=== PATIENT | female | born 1980 | race Caucasian/White ===

== ENCOUNTER 2017-09-13 05:58 | Day surgery (SDC) | payer BC ==
[2017-09-07 13:49] VITALS: BMI 31.7
[2017-09-13] MEDS ORDERED: CEFAZOLIN/Water 2 GM/20 ML SYRINGE ONE (06:16)
[2017-09-13] MEDS ORDERED: Ondansetron HCl/PF 4 MG/2 ML Vial ONE ×2 (06:39→15:29)
[2017-09-13] MEDS ORDERED: Famotidine/PF 20 mg/2ml Vial ONE (06:44)
[2017-09-13] MEDS ORDERED: Bupivacaine 0.25% HCL 30 ML VIAL ONE (06:55)
[2017-09-13] MEDS ORDERED: Lidocaine 1% w/Epinephrine 1:200K 30 ML VIAL ONE (06:55)
[2017-09-13] MEDS ORDERED: Fentanyl 100 MCG/2 ML VIAL ONE ×2 (07:34→08:37)
[2017-09-13] MEDS ORDERED: Bupivacaine 0.5% 10 ML VIAL ONE (07:43)
[2017-09-13] MEDS ORDERED: Lidocaine 1% (PF) 30 ML VIAL ONE (07:43)
--- NOTE | 2017-09-13 15:05 | OP ---
DATE OF PROCEDURE: 09/13/2017 PREOPERATIVE DIAGNOSIS: Right radial tear of medial meniscus. POSTOPERATIVE DIAGNOSES: 1. Right radial tear of medial meniscus. 2. Grade I-II changes noted in medial femoral condyle. PROCEDURE PERFORMED: Right arthroscopic medial meniscectomy. STAFF: Klaus Banerjee M.D. CULINARY INTERNSHIP: None. ANESTHESIA: Av Kumar M.D. Patient received 25 mL of Marcaine 0.25% plain and then 25 mL lidoc catarino pre-scope and post-scope subcu and an intra-articular 1% lidocaine with epinephrine. ESTIMATED BLOOD LOSS: Less than 20 mL. TOURNIQUET TIME: 11 minutes. ANTIBIOTICS: Ancef 2 grams. COMPLICATIONS: None. HISTORY OF PRESENT ILLNESS: Ms. Trejo is a pleasant 37-year-old female who presented to me with righ t knee pain for about 4 months. 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 Patient's pain was localized medial to her right knee. I discussed with patient the r isks and benefits of an arthroscopic meniscectomy to include pain, scar, bleeding, infection, damage to vital structures, decreased range of motion or strength, failure of procedure, continued pain desp ite surgical intervention, arthritis long-term and loss of life or limb. The patient understood the risks and benefits of procedure and elected to proceed. DESCRIPTION OF PROCEDURE: Time out was performed designating the patient's right lower extremity as the operative site based on sight, consents, markings. After completion of timeout, the patient's [facility] lower extremity was prepped and draped in a sterile fashion. The patient had 30 mL of Marcaine 0 .25%, plain intraarticularly. We then began our scope. We debrided the fat pad, looked at the ACL w hich was intact, PCL was intact. Patellofemoral cartilage looked good. There was nothing in the med ial and lateral gutters. The patient's lateral compartment was clean, no lateral meniscus tear noted . Medial compartment, medial femoral condyle had some grade I and II changes little small fissuring with no full thickness cartilage defects. She did have a radial tear, which was noted and right befo re the horn of the medial meniscus. We used biters to nibble the tear and shaved to a stable remnant . I took pictures of the medial femoral condyle as well as the meniscus after completion of the debr idement. I then washed, let the tourniquet down. I injected lidocaine with epinephrine intraarticul gabi within the subcutaneous to help with pain control, placed my 3-0 nylon. The patient will be weightbearing as tolerated. Follow up with me in 2 weeks. Discharged home with pain medications.
[2017-09-13] MEDS ORDERED: Ketorolac Tromethamine 30 MG/ML VIAL ONE (15:29)
[2017-09-13] MEDS ORDERED: Dexamethasone 20 MG/5 ML VIAL ONE (15:29)
[2017-09-13] MEDS ORDERED: Lidocaine 1% PF 5 ML VIAL ONE (15:29)
[2017-09-13] MEDS ORDERED: PROPOFOL 200 MG/20 ML VIAL ONE (15:29)
== END 2017-09-13 10:00 | disposition home or self-care (01) ==
LOC: SDC 05:58
PROVIDERS: ATTEND Orthopaedic Surgery
PROC: 0SBC4ZZ Excision of Right Knee Joint, Percutaneous Endoscopic Approach (ICD-10-PCS; principal; 2017-09-13)
DX: S83.241A Other tear of medial meniscus, current injury, right knee, initial encounter (principal); Z90.49 Acquired absence of other specified parts of digestive tract; Z98.891 History of uterine scar from previous surgery; Z90.710 Acquired absence of both cervix and uterus; Z98.890 Other specified postprocedural states
CPT/HCPCS: 96374; G8978-GP-CI; G8979-GP-CI; G8980-GP-CI; J1100; J1885; J2001; J2405; J2704; J3010; J3490; S0020; S0028

== ENCOUNTER 2019-08-20 09:04 | Outpatient (CLI) | payer BC ==
--- NOTE | 2019-08-20 11:15 | MRI ---
MRI LEFT KNEE WITHOUT IV CONTRAST: HISTORY: Acute left knee pain, M25.562. TECHNIQUE: Multiplanar, multisequence MRI examination of the left knee is performed. FINDINGS: No significant abnormal joint effusion. No significant focal cartilage loss. There is a small focus o f linear increased signal involving the undersurface of the body of the medial meniscus, probably rep resenting a small subsurface tear. Minimal intrasubstance degenerative signal within the medial menis cus. The lateral meniscus appears unremarkable. Collateral ligament complexes, quadriceps and patella r tendons, and anterior and posterior cruciate ligaments appear intact. No acute osteochondral defect or significant abnormal marrow signal. IMPRESSION: 1. Subtle linear area of increased signal involving the undersurface of the body of the medial menisc us, probably representing a small, subsurface tear. 1. No evidence for other significant acute internal derangement. POS: OFF
== END 2019-08-20 09:05 | disposition home or self-care (01) ==
LOC: SCSMRI 09:04
PROVIDERS: ATTEND Orthopaedic Surgery
DX: M25.562 Pain in left knee (principal)

== ENCOUNTER 2019-09-01 06:13 | Outpatient (CLI) | payer BC ==
[2019-09-01 12:26] LABS: #Basophils 0.1 thou/uL (0.0-0.2); #Eosinphils 0.3 thou/uL (0.0-0.7); #Lymphocytes 3.4 thou/uL (1.20-3.40); #Monocytes 0.6 thou/uL (0.11-0.59); #Neutrophils 4.5 thou/uL (1.40-6.50); %Basophils 1.2 % (0.0-1.0); %Eosinophils 2.8 % (0.0-10.0); %Lymphocytes 38.4 % (21.0-51.0); %Monocytes 6.5 % (0.0-10.0); Hemoglobin 13.3 g/dL (12.0-16.0); Mean Corpuscular HGB CONC 33.6 g/dL (32.0-36.0); Mean Corpuscular Hemoglobin 29.7 pg (27.0-31.0); Mean Corpuscular Volume 88.5 fL (78.0-98.0); Mean Platelet Volume 7.5 fL (7.4-10.4); Platelet Count 275 thou/uL (130-400); RBC Distribution Width 11.4 % (11.5-14.5); Red Blood Cell (RBC) Count 4.48 mill/uL (4.20-5.40); White Blood Cell (WBC) Count 8.9 thou/uL (4.8-10.8)
[2019-09-01 12:50] LABS: Anion Gap 12 mmol/L (10-20); BUN (Urea Nitrogen) 9 mg/dL (7.0-18.7); Calc. Creatinine Clearance 0 mL/min (70-130); Calcium 9.4 mg/dL (7.8-10.44); Carbon Dioxide 26 mmol/L (22-29); Chloride 103 mmol/L (98-107); Estimated GFR-MDRD Greater than 90; Glucose 86 mg/dL (70-105); Potassium 3.7 mmol/L (3.5-5.1); Sodium 137 mmol/L (136-145)
== END 2019-09-01 06:14 | disposition home or self-care (01) ==
LOC: LABBT 06:13
PROVIDERS: ATTEND Surgery
DX: Z01.812 Encounter for preprocedural laboratory examination (principal); K43.2 Incisional hernia without obstruction or gangrene
CPT/HCPCS: 80048; 85025

== ENCOUNTER 2019-09-05 06:04 | Day surgery (SDC) | payer BC ==
[2019-09-01 11:17] VITALS: BMI 33.5
[2019-09-05] MEDS ORDERED: Scopolamine 1.5 mg/72 hour Patch ONE (06:44)
[2019-09-05] MEDS ORDERED: Fentanyl 100 MCG/2 ML VIAL ONE ×2 (06:44→10:26)
[2019-09-05] MEDS ORDERED: Lidocaine 1% w/Epinephrine 1:100K 20 ML VIAL ONE (07:04)
[2019-09-05] MEDS ORDERED: Bupivacaine 0.25% HCL 30 ML VIAL ONE (07:04)
[2019-09-05] MEDS ORDERED: PHENYLEPHRINE-NS 100 MCG/ML 10 ML SYRINGE ONE (11:08)
[2019-09-05] MEDS ORDERED: Ketorolac Tromethamine 30 MG/ML VIAL ONE (11:08)
[2019-09-05] MEDS ORDERED: PROPOFOL 200 MG/20 ML VIAL ONE (11:08)
[2019-09-05] MEDS ORDERED: Lidocaine 1% PF 5 ML VIAL ONE (11:08)
[2019-09-05] MEDS ORDERED: Ondansetron PF 4 MG/2 ML Vial ONE (11:08)
[2019-09-05] MEDS ORDERED: Rocuronium Bromide 10 MG/ML (10ML VIAL) ONE (11:08)
[2019-09-05] MEDS ORDERED: Glycopyrrolate 0.2 MG/ML 5 ML SYRINGE ONE (11:08)
[2019-09-05] MEDS ORDERED: Dexamethasone 20 MG/5 ML VIAL ONE (11:08)
[2019-09-05] MEDS ORDERED: HYDROcodone/Acetaminophen 5/325 mg Tablet ONE (11:10)
[2019-09-05] MEDS ORDERED: Morphine 2 MG/ML SYRINGE ONE (11:41)
--- NOTE | 2019-09-08 09:42 | OP ---
DATE OF PROCEDURE: 09/05/2019 PREOPERATIVE DIAGNOSIS: Incisional hernia. POSTOPERATIVE DIAGNOSIS: Incisional hernia. PROCEDURE PERFORMED: Da Frantz laparoscopic incisional hernia repair with mesh, [address] ANESTHESIA: General. ESTIMATED BLOOD LOSS: Minimal. COMPLICATIONS: None. SPECIMEN: None. FINDINGS: Incisional hernia. DESCRIPTION OF PROCEDURE: The patient was taken to the operating room and laid supine on the operating room table. After general anesthetic was obtained, a Watkins was placed. The abdomen was prepped and draped in a sterile fashion. Left subcostal 5 mm Optiview trocar was placed without injury, and high-flow pneumoperitoneum was obtained. Left and right subcostal 8 mm robot trocars were placed, and the 5 mm port was switched out to an 11 mm [employer] port. All ports were docked to the robot. Peritoneum was taken down in the area of the umbilicus, where the incisional hernia was, exposing the incisional hernia. The preperitoneal fat was reduced out of the hernia. 0 V-Loc suture was used to close the defect primarily. 8 cm Ventralex mesh was brought into the sterile field and placed in the abdominal cavity. The exposed mesh part was placed up against the posterior fascia. The protected undersurface was left down against the bowel. This was sewn to the posterior fascia using running 2-0 V- Loc. All port sites were infiltrated using local anesthetic. All ports were removed under camera visualization. Pneumoperitoneum was let down. 4-0 Monocryl and Dermabond were used to close all the skin incisions. The patient was sent to Recovery in stable condition. All instrument counts, needle counts, and lap counts were correct. Job ID: [id number]
== END 2019-09-05 12:56 | disposition home or self-care (01) ==
LOC: SDC 06:04
PROVIDERS: ATTEND Surgery
PROC: 0WUF4JZ Supplement Abdominal Wall with Synthetic Substitute, Percutaneous Endoscopic Approach (ICD-10-PCS; principal; 2019-09-05)
DX: K43.2 Incisional hernia without obstruction or gangrene (principal)
CPT/HCPCS: C1781; J0690; J1100; J1885; J2001; J2270; J2405; J2704; J3010; S0020

== ENCOUNTER 2019-09-25 07:28 | Day surgery (SDC) | payer BC ==
[2019-09-24 14:03] VITALS: BMI 32.5
[2019-09-25 08:27] LABS: #Basophils 0.1 thou/uL (0.0-0.2); #Eosinphils 0.4 thou/uL (0.0-0.7); #Lymphocytes 2.6 thou/uL (1.20-3.40); #Monocytes 0.4 thou/uL (0.11-0.59); %Basophils 0.8 % (0.0-1.0); %Eosinophils 4.4 % (0.0-10.0); %Lymphocytes 31.2 % (21.0-51.0); %Monocytes 4.9 % (0.0-10.0); %Neutrophils 58.8 % (42.0-75.0); Hemoglobin 14.1 g/dL (12.0-16.0); Mean Corpuscular HGB CONC 34.4 g/dL (32.0-36.0); Mean Corpuscular Hemoglobin 30.9 pg (27.0-31.0); Mean Corpuscular Volume 89.8 fL (78.0-98.0); Mean Platelet Volume 7.8 fL (7.4-10.4); Platelet Count 276 thou/uL (130-400); RBC Distribution Width 11.2 % (11.5-14.5); Red Blood Cell (RBC) Count 4.57 mill/uL (4.20-5.40); White Blood Cell (WBC) Count 8.4 thou/uL (4.8-10.8)
[2019-09-25] MEDS ORDERED: Bupivacaine 0.25% HCL 30 ML VIAL ONE (09:14)
[2019-09-25] MEDS ORDERED: Lidocaine 1% w/Epinephrine 1:100K 20 ML VIAL ONE (09:14)
[2019-09-25] MEDS ORDERED: HYDROmorphone 0.5 MG/0.5 ML SYRINGE ONE (09:17)
[2019-09-25] MEDS ORDERED: Midazolam HCl 2 mg/2 ml Vial ONE (09:17)
[2019-09-25] MEDS ORDERED: Meperidine HCl/PF 25 MG/ML VIAL ONE (10:43)
[2019-09-25] MEDS ORDERED: PROPOFOL 200 MG/20 ML VIAL ONE (11:28)
[2019-09-25] MEDS ORDERED: Dexamethasone 20 MG/5 ML VIAL ONE (11:28)
[2019-09-25] MEDS ORDERED: Lidocaine 1% PF 5 ML VIAL ONE (11:28)
[2019-09-25] MEDS ORDERED: Ondansetron PF 4 MG/2 ML Vial ONE (11:28)
[2019-09-25] MEDS ORDERED: Ketorolac Tromethamine 30 MG/ML VIAL ONE (11:28)
[2019-09-25] MEDS ORDERED: HYDROcodone/Acetaminophen 5/325 mg Tablet ONE (12:15)
--- NOTE | 2019-09-25 12:39 | OP ---
DATE OF PROCEDURE: 09/25/2019 PREOPERATIVE DIAGNOSIS: Left medial meniscus tear. POSTOPERATIVE DIAGNOSIS: Left medial meniscus tear. PROCEDURE PERFORMED: Left medial partial meniscectomy. TERRAZZO TILE MAKER: None. ANESTHESIOLOGIST: Dr. Price. ANESTHESIA: The patient received LMA, 25 mL of 1% lidocaine with epi and 25 mL of Marcaine 0.25% plain postprocedure. ANTIBIOTICS: Ancef 2 g. TOURNIQUET TIME: 16 minutes at 200 mmHg. ESTIMATED BLOOD LOSS: 20 mL. COMPLICATIONS: None. HISTORY OF PRESENT ILLNESS: Ms. Trejo is a 39-year-old female with previous right meniscectomy, left knee was bothering her. MRI showed a frayed edge tear of the meniscus. I discussed the risks and benefits of the left medial meniscectomy to include pain, scar, bleeding, infection, damage to vital structures, decreased range of motion and strength, arthritis, continued pain despite surgical intervention, loss of life or limb. The patient understood the risks and benefits and elected to proceed. DESCRIPTION OF PROCEDURE: Time-out was performed designating the patient's left lower extremity as the operative site based on site, consents, and marking. After time-out, the patient's left lower extremity was prepped and draped in sterile fashion. I injected 25 mL of lidocaine 1% with epi into the joint. I then took the tourniquet up and it was left up for a total of 16 minutes. I made an anterolateral incision, visualized the spinal needle above the meniscus, placed in the medial meniscus position, that was visualized, placed our left medial portal, excised the fat pad, probed and saw the ACL and PCL. There were no cartilage lesions in the trochlea or the femur, lateral meniscusthere were no tears, nothing to be probed in the joint. Medially, there was a small tear along the white-white zone that had a small rent like a small radial component, which we cleaned up with biters and mary , and looked for any other defects. There were no other tears. We then completed our procedure injected the Marcaine plain into the joint. The patient will be weightbearing as tolerated. Follow up with me in about 10 to 12 days. Discharged home with [place]. Job ID: [id number] [facility]
== END 2019-09-25 13:03 | disposition home or self-care (01) ==
LOC: SDC 07:28
PROVIDERS: ATTEND Orthopaedic Surgery
PROC: 0SBD4ZZ Excision of Left Knee Joint, Percutaneous Endoscopic Approach (ICD-10-PCS; principal; 2019-09-25)
DX: S83.242A Other tear of medial meniscus, current injury, left knee, initial encounter (principal); E78.00 Pure hypercholesterolemia, unspecified; E78.5 Hyperlipidemia, unspecified; E55.9 Vitamin D deficiency, unspecified; Z79.52 Long term (current) use of systemic steroids; Z79.899 Other long term (current) drug therapy; Z98.890 Other specified postprocedural states
CPT/HCPCS: 85025; J0690; J1100; J1170; J1885; J2001; J2175; J2250; J2405; J2704; S0020

== ENCOUNTER 2022-08-23 08:03 | Outpatient (CLI) | payer BC ==
[2022-08-23] MEDS ORDERED: Iopamidol-370 76% 500 ML 1 ML ONE (09:46)
== END 2022-08-23 08:04 | disposition home or self-care (01) ==
LOC: BICCT 08:03
PROVIDERS: ATTEND Family Medicine
DX: R10.31 Right lower quadrant pain (principal); K56.50 Intestinal adhesions [bands], unspecified as to partial versus complete obstruction
CPT/HCPCS: 74177; Q9967

== ENCOUNTER 2023-01-15 15:23 | Outpatient (CLI) | payer BC | END 2023-01-15 15:24 | disposition home or self-care (01) | LOC: SCSRAD 15:23 | PROVIDERS: ATTEND Family Medicine | DX: S59.902A Unspecified injury of left elbow, initial encounter (principal); S52.125A Nondisplaced fracture of head of left radius, initial encounter for closed fracture ==

== ENCOUNTER 2023-02-05 13:53 | Outpatient (CLI) | payer BC | END 2023-02-05 13:54 | disposition home or self-care (01) | LOC: SCSRAD 13:53 | PROVIDERS: ATTEND Family Medicine | DX: S52.125D Nondisplaced fracture of head of left radius, subsequent encounter for closed fracture with routine healing (principal) ==